=== PATIENT | female | born 1965 | race Hispanic/Latino ===

== ENCOUNTER 2018-06-17 07:25 | Day surgery (SDC) | payer OTHER ==
[2018-06-17] MEDS ORDERED: ECOTRIN PO NR (08:00)
[2018-06-17] MEDS ORDERED: NACL 0.9% 500 ML 500 ML IV SCH (08:00)
[2018-06-17 08:54] LABS: Partial Thromboplastin Time 22.3 Sec. (24.2-36.6)
[2018-06-17 08:58] LABS: INR 1.01 (0.87-1.13)
[2018-06-17] MEDS ORDERED: VERSED ONE (10:04)
[2018-06-17] MEDS ORDERED: SUBLIMAZE ONE (10:04)
[2018-06-17] MEDS ORDERED: CALAN ONE (10:04)
[2018-06-17] MEDS ORDERED: HEPARIN/NS 5000 UNIT/500ML(CATH LAB) 1,000 ML IR ONE (10:04)
[2018-06-17] MEDS ORDERED: HEPARIN 10,000 UNITS/10 ML ONE (10:04)
[2018-06-17] MEDS ORDERED: XYLOCAINE 2% INFILTRATI ONE ×2 (10:04→10:32)
[2018-06-17] MEDS ORDERED: NITROGLYCERIN SYRINGE 3 ML ONE (10:05)
[2018-06-17] MEDS ORDERED: HEPARIN 10,000 UNITS/10 ML 10,000 UNIT in NACL 0.9% 1000 ML 1,000 ML IR ONE (10:28)
[2018-06-17] MEDS ORDERED: VERSED IV ONE ×2 (10:30→10:33)
[2018-06-17] MEDS ORDERED: SUBLIMAZE IV ONE ×2 (10:30→10:33)
[2018-06-17] MEDS ORDERED: HEPARIN 10,000 UNITS/10 ML IV ONE (10:34)
[2018-06-17] MEDS ORDERED: CALAN ART-SHEATH ONE (10:34)
--- NOTE | 2018-06-17 13:10 | Cardiac Catherization Report ---
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 The patient is aware of the procedure, potential complications, and alternatives of therapy available. DESCRIPTION OF PROCEDURE: The patient was brought to the catheterization laboratory in a fasting condition. The right wrist area and forearm thoroughly cleansed with Betadine solution. Sterile drapes were applied. Local anesthesia was achieved using 2% Xylocaine. Right radial artery puncture was made using 21-gauge arterial puncture needle. Subsequently, 5-Welsh sheath was introduced. A 5-Welsh multipurpose catheter was initially attempted; however, a 5-Welsh TIG catheter was used to obtain the left coronary angiograms and 5-Welsh JR4 catheter was used to obtain the right coronary angiograms and also JR4 catheter was used to obtain the left ventriculogram done in HERNANDEZ projection with hand injection. At the end of the procedure, catheter and sheath were removed. Good hemostasis was achieved with a radial band. It is to be noted the patient was evaluated for moderate sedation prior to the procedure and was found to be appropriate candidate. The patient was sedated with IV Versed and fentanyl around 10:30 a.m. requiring repeat dose a few minutes later. The patient was monitored with pulse oximetry, EKG monitoring and hemodynamic monitoring up to 10:47 a.m. No untoward complications were noted. The patient is alert, oriented x 3, moving all the extremities at the end of the procedure. Following findings were noted. HEMODYNAMICS: 1. Opening aortic pressure 122/70, left ventricular pressure 122/17, no gradient across the aortic valve. Estimated ejection fraction 50-55%. Left ventriculogram was performed in HERNANDEZ projection, however, only limited amount of dye injected. Overall, left ventricular function upper limits of normal, end diastolic pressure upper limits of normal. 2. Right coronary artery dominant vessel arises normally from right coronary cusp is tortuous, but angiographically smooth and normal. 3. Left coronary artery west normally from left coronary cusp. Left main, LAD and its branches, circumflex artery and its branch are angiographically smooth and normal. FINAL IMPRESSION: 1. Normal size left ventricle with normal contractility, however, only limited amount of dye is injected, would confirm ejection fraction with echocardiogram. 2. Normal coronary anatomy angiographically with RCA being the dominant vessel. 3. The patient tolerated the procedure well. No untoward complications were noted. The patient was transferred to the room in stable condition. Findings were explained to the patient and her . She will be continued on risk factor modification. JOB# [id number] PERLA/NTS
[2018-06-17 16:48] VITALS: BP 106/63
== END 2018-06-17 15:30 | disposition home or self-care (01) ==
LOC: CATHLABREC 07:25
PROVIDERS: ATTEND Internal Medicine
DX: I77.1 Stricture of artery (principal); R94.39 Abnormal result of other cardiovascular function study; I50.32 Chronic diastolic (congestive) heart failure; I44.7 Left bundle-branch block, unspecified; J45.909 Unspecified asthma, uncomplicated; F41.9 Anxiety disorder, unspecified; Z98.890 Other specified postprocedural states; Z79.899 Other long term (current) drug therapy; Z72.89 Other problems related to lifestyle; Z88.0 Allergy status to penicillin
CPT/HCPCS: 36415; 85610; 85730; 93005; 93010; 93458; 99156; 99157; C1769; C1894; J1644; J2250; J3010; J7030; J7040; Q9967